=== PATIENT | male | born 1955 | race Caucasian/White ===

== ENCOUNTER → 2016-10-17 13:39 | Outpatient (CLI) | payer MEDICARE, OTHER | END | disposition home or self-care (01) | LOC: D.US 13:39 | DX: I65.23 Occlusion and stenosis of bilateral carotid arteries (principal) ==

== ENCOUNTER → 2017-12-11 11:03 | Outpatient (CLI) | payer MEDICARE, OTHER | END | disposition home or self-care (01) | LOC: D.US 11:03 | DX: I65.23 Occlusion and stenosis of bilateral carotid arteries (principal) ==

== ENCOUNTER → 2019-06-07 13:21 | Outpatient (CLI) | payer MEDICARE, BC | END | disposition home or self-care (01) | LOC: D.US 13:21 | PROVIDERS: ATTEND Internal Medicine Cardiovascular Disease | DX: I65.23 Occlusion and stenosis of bilateral carotid arteries (principal) ==

== ENCOUNTER 2021-02-11 07:32 | Day surgery (SDC) | payer MEDICARE, BC ==
[~2021-02-11] VITALS: Ht 175.3 cm; Wt 77.3 kg
--- NOTE | ~2021-02-11 | OP ---
PATIENT NAME: JERI VALDEZ MEDICAL RECORD: [id number] LOCATION:[facility] ADMISSION DATE: SURGEON: SAMREEN PALMA MD DATE OF OPERATION: 02/11/2021 PROCEDURE: Upper endoscopy. PREOPERATIVE DIAGNOSIS: Mr. Valdez is a pleasant 65-year-old gentleman who has a history of gastric lymphoma. He is being followed up by oncology and has had recent negative PET scan per report. MEDICATION: Propofol per anesthesia. A 20 mg of propofol, 2 mg of Versed. DESCRIPTION OF PROCEDURE: Upper endoscopy was performed. The endoscope was advanced through the mouth and advanced to the second part of the duodenum. The entire examined esophagus was normal. In the gastric body was mild erythema consistent with gastritis. There was mild erythema in the fundus; however, no mass lesions were seen. Biopsies were done in the fundus. The remainder of the exam was normal. The small bowel was normal. The patient tolerated the procedure well. FINAL DIAGNOSES: Mild gastritis. Biopsies taken. Normal duodenum, normal esophagus. PLAN: Check histology results. Advance diet. Continue follow up with oncology. Return to GI office. TRANSINT:[id number] Voice Confirmation ID: [id number] DOCUMENT ID: [id number] SAMREEN PALMA MD CC: [id number] DICTATION DATE: 02/11/21 1025 [employer] G[employer] RECRUITER: 02/11/21 1040 [id number] [place] [address]
[2021-02-11 07:59] LABS: HEMATOCRIT 44.4 % (42.0-54.0); HEMOGLOBIN 15.1 g/dL (13.5-17.5); MCH 33.2 pg (26.0-34.0); MCHC 33.9 g/dL (31.0-37.0); MCV 97.8 fL (80.0-100.0); MEAN PLATELET VOLUME 7.4 fL (7.4-10.4); MONOCYTES 5.1 % (2-11); NEUTROPHILS 73.9 % (40-80); PLATELET COUNT 182 10x3/uL (130-400); RBC 4.54 10x6/uL (4.20-6.10); WBC 8.9 10x3/uL (4.8-10.8)
[2021-02-11 08:00] LABS: ANION GAP 6.4 mmol/L (8-16); CALCIUM 9.3 mg/dL (8.5-10.1); CARBON DIOXIDE 33.9 mmol/L (21.0-32.0); CREATININE - SERUM 1.1 mg/dL (0.6-1.3); POTASSIUM - SERUM 4.3 mmol/L (3.5-5.1)
[2021-02-11] MEDS ORDERED: LISINOPRIL10 MG PO (08:19)
[2021-02-11] MEDS ORDERED: LIPITOR80 MG PO (08:21)
[2021-02-11] MEDS ORDERED: BAYER CHEWABLE81 MG PO (08:22)
[2021-02-11] MEDS ORDERED: PLAVIX75 MG PO (08:22)
[2021-02-11 08:31] VITALS: BP 120/57; Ht 175.3 cm; Wt 77.3 kg
--- NOTE | 2021-02-11 11:10 | NUR ---
DC TEACHING COMPLETE. VERBALIZED UNDERSTANDING. 1115 PIV REMOVED, CATHETER INTACT. HELPING PT TO GET DRESSED. 1140 PT DC'D VIA WC ACCOMPANIED BY THIS NURSE TO POV WITH ALL BELONGINGS AND DC PACKET. DRIVING.
== END 2021-02-11 11:40 | disposition home or self-care (01) ==
LOC: D.OPS 07:32
PROVIDERS: Anesthesiology; ATTEND Internal Medicine Gastroenterology
DX: K29.70 Gastritis, unspecified, without bleeding (principal); Z79.01 Long term (current) use of anticoagulants; Z85.72 Personal history of non-Hodgkin lymphomas